=== PATIENT | female | born 1980 | race Caucasian/White ===

== ENCOUNTER 2016-12-05 06:23 | Emergency (ER) | payer OTHER ==
[2016-12-05 07:56] LABS: BUN/CREATININE RATIO 13 (0-10)
[2016-12-05 07:58] LABS: HEMOGLOBIN 18.1 gm/dl (12.3-15.3); RED BLOOD COUNT 5.36 M/UL (4.00-5.10)
== END 2016-12-05 12:29 | disposition home or self-care (01) ==
LOC: ER1 06:23
PROVIDERS: Emergency Medicine
DX: R10.31 Right lower quadrant pain (principal); R31.9 Hematuria, unspecified; R11.2 Nausea with vomiting, unspecified; I10 Essential (primary) hypertension; E03.9 Hypothyroidism, unspecified; F17.210 Nicotine dependence, cigarettes, uncomplicated; Z90.49 Acquired absence of other specified parts of digestive tract; Z88.0 Allergy status to penicillin; Z88.2 Allergy status to sulfonamides; Z79.899 Other long term (current) drug therapy
CPT/HCPCS: 36415; 80053; 81001; 82150; 83690; 84703; 85025; 87086; 96361; 96374; 96375; 99284; J1885; J2270; J2405; J7030